=== PATIENT | male | born 1990 | race American Indian/Alaskan Native ===

== ENCOUNTER 2021-09-11 08:12 | Emergency (ER) | payer OTHER ==
[2021-09-11] MEDS ORDERED: FAMOTIDINE 20 MG/2 ML INJ IV ONE (08:45)
[2021-09-11] MEDS ORDERED: ONDANSETRON 4 MG/2 ML INJ IV ONE (08:45)
[2021-09-11] MEDS ORDERED: SODIUM CHLORIDE 0.9% 1000 ML 1,000 ML IV ONE (08:45)
[2021-09-11 09:53] LABS: Hematocrit 45.5 % (35.5-45.6); Hemoglobin 15.2 gm/dl (11.8-15.2); Mean Corpuscular HGB Conc 33 % (32-34); Mean Corpuscular Volume 95 fl (84-94); Platelet Count 243 K/mm3 (140-440); Red Blood Count 4.79 M/mm3 (3.65-5.03)
[2021-09-11 10:16] LABS: Alanine Aminotransferase 7 units/L (7-56); Albumin 4.9 g/dL (3.9-5); Blood Urea Nitrogen 17 mg/dL (9-20); Calcium 9.8 mg/dL (8.4-10.2); Hemolysis Index 7
[2021-09-11 10:29] LABS: BUN/Creatinine Ratio 28
--- NOTE | 2021-09-11 10:32 | Emergency Department Report ---
ED Abdominal Pain HPI - General Chief Complaint: Abdominal Pain Stated Complaint: ABDOMINAL PAIN/VOMITING PUI?: Yes Time Seen by Provider: 09/11/21 08:42 Source: patient Mode of arrival: Ambulatory Limitations: No Limitations - History of Present Illness Initial Comments: Patient is a 30-year-old male that comes to the emergency room with nausea vomiting and diarrhea. He states that it started yesterday. On exam he is laying on his stomach. He denies any fever or chills. He denies anyone that he has been around has having illness. He did not receive Covid immunizations. He denies cough or shortness of breath. He has no associated abdominal pain. No dysuria or back pain. Patient is ambulatory to the ER Patient reports a history of GERD as a child - Related Data Previous Rx's Medication Instructions Recorded Last Taken Type Ondansetron [Zofran Odt] 4 mg PO Q8HR PRN #10 tab.rapdis 09/11/21 Unknown Rx Allergies Allergy/AdvReac Type Severity Reaction Status Date / Time No Known Allergies Allergy Verified 09/11/21 08:33 ED Review of Systems ROS: Stated complaint: ABDOMINAL PAIN/VOMITING Other details as noted in HPI Comment: All other systems reviewed and negative ED Past Medical Hx - Past Medical History Previous Medical History?: Yes Hx GERD: Yes - Medications Home Medications: Home Medications Medication Instructions Recorded Confirmed Last Taken Type Ondansetron [Zofran Odt] 4 mg PO Q8HR PRN #10 tab.rapdis 09/11/21 Unknown Rx ED Physical Exam - General Limitations: No Limitations General appearance: alert, in no apparent distress - Head Head exam: Present: atraumatic, normocephalic - Eye Eye exam: Present: normal appearance - ENT ENT exam: Present: mucous membranes moist - Neck Neck exam: Present: normal inspection - Respiratory Respiratory exam: Present: normal lung sounds bilaterally. Absent: respiratory distress - Cardiovascular Cardiovascular Exam: Present: regular rate, normal rhythm. Absent: systolic murmur, diastolic murmur, rubs, gallop - GI/Abdominal GI/Abdominal exam: Present: soft, normal bowel sounds - Rectal Rectal exam: Present: deferred - Extremities Exam Extremities exam: Present: normal inspection - Back Exam Back exam: Present: normal inspection - Neurological Exam Neurological exam: Present: alert, oriented X3 - Psychiatric Psychiatric exam: Present: normal affect, normal mood - Skin Skin exam: Present: warm, dry, intact, normal color. Absent: rash ED Course Vital Signs 09/11/21 08:32 Temperature 98.9 F Pulse Rate 84 Respiratory 18 Rate Blood Pressure 111/69 O2 Sat by Pulse 97 Oximetry ED Medical Decision Making - Lab Data Result diagrams: 09/11/21 09:24 09/11/21 09:24 - Medical Decision Making Vital Signs 09/11/21 08:32 Temperature 98.9 F Pulse Rate 84 Respiratory 18 Rate Blood Pressure 111/69 O2 Sat by Pulse 97 Oximetry Labs 09/11/21 09/11/21 09:24 09:24 WBC 14.4 H RBC 4.79 Hgb 15.2 Hct 45.5 MCV 95 H MCH 32 MCHC 33 RDW 14.0 Plt Count 243 Sodium 138 Potassium 4.5 Chloride 100.9 Carbon Dioxide 22 Anion Gap 20 BUN 17 Creatinine 0.6 L Estimated GFR > 60 BUN/Creatinine Ratio 28 Glucose 93 Calcium 9.8 Total Bilirubin 1.60 H AST 16 ALT 7 Alkaline Phosphatase 102 Total Protein 7.4 Albumin 4.9 Albumin/Globulin Ratio 2.0 Lipase 14 1l ns/zofran labs noted on reexam- pt asking to leave. no n/v/d since arrival to ER. Taking po dc home with dc plan of care including diet, meds, activity and follow up. He verbalizes understanding of discharge plan of care Critical care attestation.: If time is entered above; I have spent that time in minutes in the direct care of this critically ill patient, excluding procedure time. ED Disposition Clinical Impression: Gastroenteritis Disposition: 01 HOME / SELF CARE / HOMELESS Is pt being admited?: No Does the pt Need Aspirin: No Condition: Stable Instructions: Viral Gastroenteritis, Adult Additional Instructions: Start diet slowly with bananas rice applesauce and toast and then advance as tolerated Stay well-hydrated with water Tylenol for any discomfort Zofran is given to you today for nausea Follow-up with PCP in 48 hours to ensure you are getting better. Referrals been given below. Prescriptions: Ondansetron [Zofran Odt] 4 mg PO Q8HR PRN #10 tab.rapdis PRN Reason: Vomiting Referrals: MARILYNN GENTILE MD [Primary Care Provider] - 3-5 Days Forms: Work/School Release Form(ED) Time of Disposition: 10:37
[2021-09-11 10:56] VITALS: BP 114/76
== END 2021-09-11 10:56 | disposition home or self-care (01) ==
LOC: ED 08:12
DX: K52.9 Noninfective gastroenteritis and colitis, unspecified (principal); K21.9 Gastro-esophageal reflux disease without esophagitis
CPT/HCPCS: 36415; 80053; 83690; 85027; 96361; 96374; 96375; 99283; J2405; J3490; J7030; Q0162

== ENCOUNTER 2021-10-30 11:52 | Emergency (ER) | payer OTHER ==
[2021-10-30 16:03] LABS: Bilirubin,Urine NEG (Negative); Blood,Urine NEG (Negative); Color,Urine Yellow (Yellow); Mucus,Urine FEW /HPF
[2021-10-30] MEDS ORDERED: MORPHINE 4 MG/1 ML INJ IV ONE (16:22)
--- NOTE | 2021-10-30 16:30 | Emergency Department Report ---
ED Abdominal Pain HPI - General Chief Complaint: Abdominal Pain Stated Complaint: BACK/KIDNEY PAIN Source: patient Mode of arrival: Ambulatory Limitations: No Limitations - History of Present Illness Initial Comments: 30-year-old male past medical history GERD, reports to the ER with bilateral back flank pain since Friday. Patient reports that on Friday night he was drinking at someone's house and ate food there as well. Reports having nausea and vomiting and abdominal cramping the following day. Reports that the nausea vomiting is no longer present and the cramping is up subsiding. The reports the back pain is still present along with discoloration of his urine. Patient reports no other acute symptoms at this moment. Onset/Timin -: days(s) Location: bilateral flank Radiation: none Severity scale (0 -10): 6 Quality: cramping Associated Symptoms: denies other symptoms - Related Data Previous Rx's Medication Instructions Recorded Last Taken Type Ondansetron [Zofran Odt] 4 mg PO Q8HR PRN #10 tab.rapdis 09/11/21 Unknown Rx methOCARBAMOL [Robaxin TAB] 500 mg PO Q6H PRN 7 Days #21 tab 10/30/21 Unknown Rx Allergies Allergy/AdvReac Type Severity Reaction Status Date / Time No Known Allergies Allergy Verified 09/11/21 08:33 ED Review of Systems ROS: Stated complaint: BACK/KIDNEY PAIN Other details as noted in HPI Constitutional: denies: chills, fever Eyes: denies: eye pain, eye discharge, vision change ENT: denies: ear pain, throat pain Respiratory: denies: cough, shortness of breath, wheezing Cardiovascular: denies: chest pain, palpitations Endocrine: no symptoms reported Gastrointestinal: denies: abdominal pain, nausea, diarrhea Genitourinary: other (Dark-colored urine). denies: urgency, dysuria Musculoskeletal: back pain. denies: joint swelling, arthralgia Skin: denies: rash, lesions Neurological: denies: headache, weakness, paresthesias Psychiatric: denies: anxiety, depression Hematological/Lymphatic: denies: easy bleeding, easy bruising ED Past Medical Hx - Past Medical History Previous Medical History?: Yes Hx GERD: Yes - Medications Home Medications: Home Medications Medication Instructions Recorded Confirmed Last Taken Type Ondansetron [Zofran Odt] 4 mg PO Q8HR PRN #10 tab.rapdis 09/11/21 Unknown Rx methOCARBAMOL [Robaxin TAB] 500 mg PO Q6H PRN 7 Days #21 tab 10/30/21 Unknown Rx ED Physical Exam - General Limitations: No Limitations General appearance: alert, in no apparent distress - Head Head exam: Present: atraumatic, normocephalic - Eye Eye exam: Present: normal appearance - ENT ENT exam: Present: mucous membranes moist - Neck Neck exam: Present: normal inspection - Respiratory Respiratory exam: Present: normal lung sounds bilaterally. Absent: respiratory distress - Cardiovascular Cardiovascular Exam: Present: regular rate, normal rhythm. Absent: systolic murmur, diastolic murmur, rubs, gallop - GI/Abdominal GI/Abdominal exam: Present: soft, normal bowel sounds. Absent: tenderness, guarding, rebound - Rectal Rectal exam: Present: deferred - Extremities Exam Extremities exam: Present: normal inspection - Back Exam Back exam: Present: tenderness - Neurological Exam Neurological exam: Present: alert, oriented X3 - Psychiatric Psychiatric exam: Present: normal affect, normal mood - Skin Skin exam: Present: warm, dry, intact, normal color. Absent: rash ED Course Vital Signs 10/30/21 15:28 Temperature 98.1 F Pulse Rate 85 Respiratory 18 Rate Blood Pressure 111/77 O2 Sat by Pulse 99 Oximetry ED Medical Decision Making - Lab Data Result diagrams: 10/30/21 16:41 10/30/21 16:41 - Medical Decision Making 30-year-old male past medical history GERD, reports to the ER with bilateral back flank pain since Friday. Patient reports that on Friday night he was drinking at someone's house and ate food there as well. Reports having nausea and vomiting and abdominal cramping the following day. Reports that the nausea vomiting is no longer present and the cramping is up subsiding. The reports the back pain is still present along with discoloration of his urine. Patient reports no other acute symptoms at this moment. Upper bilateral back tenderness noted, no CVA tenderness . No abdominal pain. No acute findings noted on physical exam. Labs with no acute process noted. UA negative for infection. Patient reports a decrease in pain after oral tramadol. At the time of discharge patient also reports that when he was vomiting, he had episodes of when he vomited to hard and started to feel aches in his back. Patient is stable for discharge will be sent home with oral medication for muscle relaxation. Patient encouraged that if symptoms persist or get worse to return back to the ER. Patient agrees with plan of care and verbalizes understanding. No further work-up is needed at this moment. Vital Signs 10/30/21 15:28 Temperature 98.1 F Pulse Rate 85 Respiratory 18 Rate Blood Pressure 111/77 O2 Sat by Pulse 99 Oximetry Lab Results 10/30/21 10/30/21 10/30/21 Range/Units 16:41 16:41 Unknown WBC 5.1 (4.5-11.0) K/mm3 RBC 5.44 H (3.65-5.03) M/mm3 Hgb 17.6 H (11.8-15.2) gm/dl Hct 51.4 H (35.5-45.6) % MCV 94 (84-94) fl MCH 32 (28-32) pg MCHC 34 (32-34) % RDW 14.1 (13.2-15.2) % Plt Count 136 L (140-440) K/mm3 [place] % (Auto) Locker Room Clerk Add Manual Diff Complete Total Counted 100 Seg Neuts % (Manual) 50.0 (40.0-70.0) % Band Neutrophils % 0 % Lymphocytes % (Manual) 39.0 H (13.4-35.0) % Reactive Lymphs % (Man) 1.0 % Monocytes % (Manual) 10.0 H (0.0-7.3) % Eosinophils % (Manual) 0 (0.0-4.3) % Basophils % (Manual) 0 (0.0-1.8) % Metamyelocytes % 0 % Myelocytes % 0 % Promyelocytes % 0 % Blast Cells % 0 % Nucleated RBC % Not Reportable Seg Neutrophils # Man 2.6 (1.8-7.7) K/mm3 Band Neutrophils # 0.0 K/mm3 Lymphocytes # (Manual) 2.0 (1.2-5.4) K/mm3 Abs React Lymphs (Man) 0.1 K/mm3 Monocytes # (Manual) 0.5 (0.0-0.8) K/mm3 Eosinophils # (Manual) 0.0 (0.0-0.4) K/mm3 Basophils # (Manual) 0.0 (0.0-0.1) K/mm3 Metamyelocytes # 0.0 K/mm3 Myelocytes # 0.0 K/mm3 Promyelocytes # 0.0 K/mm3 Blast Cells # 0.0 K/mm3 WBC Morphology Not Reportable Hypersegmented Neuts Not Reportable Hyposegmented Neuts Not Reportable Hypogranular Neuts Not Reportable Smudge Cells Not Reportable Toxic Granulation Not Reportable Toxic Vacuolation Not Reportable Dohle Bodies Not Reportable Pelger-Huet Anomaly Not Reportable Isak Rods Not Reportable Platelet Estimate Consistent w auto Clumped Platelets Not Reportable Plt Clumps, EDTA Not Reportable Large Platelets Not Reportable Giant Platelets Not Reportable Platelet Satelliting Not Reportable Plt Morphology Comment Not Reportable RBC Morphology Normal Dimorphic RBCs Not Reportable Polychromasia Not Reportable Hypochromasia Not Reportable Poikilocytosis Not Reportable Anisocytosis Not Reportable Microcytosis Not Reportable Macrocytosis Not Reportable Spherocytes Not Reportable Pappenheimer Bodies Not Reportable Sickle Cells Not Reportable Target Cells Not Reportable Tear Drop Cells Not Reportable Ovalocytes Not Reportable Helmet Cells Not Reportable [place] Bodies Not Reportable [place] Rings Not Reportable [place] Cells Not Reportable Bite Cells Not Reportable Crenated Cell Not Reportable Elliptocytes Not Reportable Acanthocytes (Spur) Not Reportable Rouleaux Not Reportable Hemoglobin C Crystals Not Reportable Schistocytes Not Reportable Malaria parasites Not Reportable Jomar Bodies Not Reportable Hem Pathologist Commnt No Sodium 136 L (137-145) mmol/L Potassium 3.9 (3.6-5.0) mmol/L Chloride 96.9 L (98-107) mmol/L Carbon Dioxide 28 (22-30) mmol/L Anion Gap 15 mmol/L BUN 10 (9-20) mg/dL Creatinine 0.8 (0.8-1.3) mg/dL Estimated GFR > 60 ml/min BUN/Creatinine Ratio 13 % Glucose 115 H (75-100) mg/dL Calcium 9.4 (8.4-10.2) mg/dL Total Bilirubin 0.40 (0.1-1.2) mg/dL AST 22 (5-40) units/L ALT 12 (7-56) units/L Alkaline Phosphatase 102 (35-129) units/L Total Protein 7.4 (6.3-8.2) g/dL Albumin 4.6 (3.9-5) g/dL Albumin/Globulin Ratio 1.6 % Urine Color Yellow (Yellow) Urine Turbidity Clear (Clear) Urine pH 5.0 (5.0-7.0) Ur Specific [place] 1.027 (1.003-1.030) Urine Protein 30 mg/dl (Negative) mg/dL Urine Glucose (UA) Neg (Negative) mg/dL Urine Ketones Tr (Negative) mg/dL Urine Blood Neg (Negative) Urine Nitrite Neg (Negative) Urine Bilirubin Neg (Negative) Urine Urobilinogen 2.0 (<2.0) mg/dL Ur Leukocyte Esterase Neg (Negative) Urine WBC (Auto) 6.0 (0.0-6.0) /HPF Urine RBC (Auto) 24.0 (0.0-6.0) /HPF U Epithel Cells (Auto) < 1.0 (0-13.0) /HPF Urine Mucus Few /HPF Critical care attestation.: If time is entered above; I have spent that time in minutes in the direct care of this critically ill patient, excluding procedure time. ED Disposition Clinical Impression: Back pain Qualifiers: Back pain location: thoracic back pain Chronicity: acute Back pain laterality: bilateral Qualified Code(s): M54.6 - Pain in thoracic spine Disposition: 01 HOME / SELF CARE / HOMELESS Is pt being admited?: No Condition: Stable Instructions: Acute Back Pain, Adult Prescriptions: methOCARBAMOL [Robaxin TAB] 500 mg PO Q6H PRN 7 Days #21 tab PRN Reason: Muscle Spasm Time of Disposition: 18:54 Print Language: MOLDOVAN
[2021-10-30 16:58] LABS: Hematocrit 51.4 % (35.5-45.6); Hemoglobin 17.6 gm/dl (11.8-15.2); Mean Corpuscular HGB Conc 34 % (32-34); Mean Corpuscular Volume 94 fl (84-94); Platelet Count 136 K/mm3 (140-440); Red Blood Count 5.44 M/mm3 (3.65-5.03); Red Cell Distribution Width 14.1 % (13.2-15.2)
[2021-10-30] MEDS ORDERED: traMADol 50 MG TAB PO ONE (17:10)
[2021-10-30 17:15] LABS: BUN/Creatinine Ratio 13
[2021-10-30 17:30] LABS: Basophils % (Manual) 0 % (0.0-1.8); Eosinophils % (Manual) 0 % (0.0-4.3); Platelet Estimate Consistent w Auto; RBC Morphology Normal; Total Cells Counted 100
[2021-10-30 17:57] LABS: Alanine Aminotransferase 12 units/L (7-56); Albumin 4.6 g/dL (3.9-5); Blood Urea Nitrogen 10 mg/dL (9-20); Calcium 9.4 mg/dL (8.4-10.2)
[2021-10-30 17:58] LABS: Hemolysis Index 14
[2021-10-30 19:35] VITALS: BP 114/82
== END 2021-10-30 20:00 | disposition home or self-care (01) ==
LOC: ED 11:52
DX: M54.6 Pain in thoracic spine (principal); R10.9 Unspecified abdominal pain; R11.2 Nausea with vomiting, unspecified; K21.9 Gastro-esophageal reflux disease without esophagitis; Z79.899 Other long term (current) drug therapy
CPT/HCPCS: 36415; 80053; 81001; 85007; 85025; 99283